=== PATIENT | male | born 1995 | race Caucasian/White ===

== ENCOUNTER 2018-01-13 19:55 | Emergency (ER) | payer BC, OTHER ==
[~2018-01-13] VITALS: Ht 172.7 cm; Wt 81.6 kg
[2018-01-13 20:07] VITALS: BP_SYST 111
[2018-01-13] MEDS ORDERED: DIPH-TET-PERTUS Vaccine 0.5 ML VIAL (ADACEL) I.M. ONE (20:45)
[2018-01-13 20:48] VITALS: BP_SYST 114
== END 2018-01-13 20:48 | disposition home or self-care (01) ==
LOC: SED 19:55
DX: S00.81XA Abrasion of other part of head, initial encounter (principal); Z88.0 Allergy status to penicillin; W22.8XXA Striking against or struck by other objects, initial encounter; Y93.89 Activity, other specified; Y92.488 Other paved roadways as the place of occurrence of the external cause; Y99.8 Other external cause status
CPT/HCPCS: 70150-TC; 90715; 99284

== ENCOUNTER 2018-08-08 11:38 | Outpatient (CLI) | payer OTHER | END 2018-08-08 19:31 | disposition home or self-care (01) | LOC: SMI 11:38 | PROVIDERS: ATTEND Internal Medicine | DX: S93.402A Sprain of unspecified ligament of left ankle, initial encounter (principal); X58.XXXA Exposure to other specified factors, initial encounter; Y93.89 Activity, other specified; Y92.89 Other specified places as the place of occurrence of the external cause; Y99.8 Other external cause status | CPT/HCPCS: 73721 ==

== ENCOUNTER 2018-08-21 21:59 | Emergency (ER) | payer OTHER ==
[~2018-08-21] VITALS: Ht 175.3 cm; Wt 90.7 kg
[2018-08-21 22:10] VITALS: BP_SYST 140
== END 2018-08-21 23:05 | disposition left against medical advice (07) ==
LOC: SED 21:59
DX: K92.0 Hematemesis (principal); K62.5 Hemorrhage of anus and rectum; Z53.21 Procedure and treatment not carried out due to patient leaving prior to being seen by health care provider

== ENCOUNTER 2018-10-10 15:18 | Emergency (ER) | payer OTHER ==
[~2018-10-10] VITALS: Ht 175.3 cm; Wt 90.7 kg
[2018-10-10 15:26] VITALS: BP_SYST 143
[2018-10-10] MEDS ORDERED: IBUPROFEN 800 MG TABLET PO ONE (16:15)
[2018-10-10] MEDS ORDERED: OSELTAMIVIR PHOSPHATE 75 MG CAPSULE PO ONE (16:30)
[2018-10-10 17:00] VITALS: BP_SYST 143
== END 2018-10-10 17:00 | disposition home or self-care (01) ==
LOC: SED 15:18
DX: J06.9 Acute upper respiratory infection, unspecified (principal); R50.9 Fever, unspecified; Z88.0 Allergy status to penicillin
CPT/HCPCS: 36415; 86710; 99283

== ENCOUNTER 2018-11-25 17:21 | Emergency (ER) | payer OTHER ==
[~2018-11-25] VITALS: Ht 175.3 cm; Wt 88.5 kg
[2018-11-25 17:23] VITALS: BP_SYST 123
[2018-11-25] MEDS ORDERED: KETOROLAC TROMETHAMINE 60 MG/2 ML VIAL IM ONE (17:45)
[2018-11-25] MEDS ORDERED: DEXAMETHASONE SOD PHOSPHATE 10 MG/ML VIAL IM ONE (17:45)
[2018-11-25 18:30] VITALS: BP_SYST 123
== END 2018-11-25 18:30 | disposition home or self-care (01) ==
LOC: SED 17:21
DX: J04.0 Acute laryngitis (principal); R03.0 Elevated blood-pressure reading, without diagnosis of hypertension; Z88.0 Allergy status to penicillin
CPT/HCPCS: 36415; 86403; 87081; 96372; 99283; J1100; J1885

== ENCOUNTER 2019-01-02 11:15 | Outpatient (CLI) | payer OTHER ==
[2019-01-02 12:03] LABS: EOSINOPHILS # (AUTO) 0.1 K/uL (0.0-0.4); EOSINOPHILS % (AUTO) 2.7 % (0.0-4.0); HEMATOCRIT 47.1 % (36-54); HEMOGLOBIN 15.8 g/dL (14.0-18.0); LYMPHOCYTES # (AUTO) 1.9 K/uL (1.0-5.5); LYMPHOCYTES % (AUTO) 38.5 % (20.5-51.5); MEAN CORPUSCULAR HEMOGLOBIN 30 pg (27-31); MEAN CORPUSCULAR HGB CONC 34 % (32-36); MEAN CORPUSCULAR VOLUME 88 fL (79.0-98.0); MONOCYTES # (AUTO) 0.4 K/uL (0.0-1.0); MONOCYTES % (AUTO) 7.3 % (1.7-9.3); NEUTROPHILS # (AUTO) 2.5 K/uL (1.8-7.7); NEUTROPHILS % (AUTO) 50.5 % (40.0-70.0); PLATELET COUNT (AUTO) 305 K/uL (130-430); RED BLOOD CELL COUNT(AUTO) 5.34 MIL/uL (4.2-6.2); RED CELL DISTRIBUTION WIDTH 14.1 % (9.0-15.0)
[2019-01-02 12:32] LABS: ALBUMIN 3.8 g/dL (3.4-4.8); CALCIUM 9.7 mg/dL (8.4-11.0); CREATININE 0.97 mg/dL (0.55-1.30); POTASSIUM 4.5 mmol/L (3.5-5.1); THYROID STIMULATING HORMONE 1.18 uIu/mL (0.34-4.82); TOTAL BILIRUBIN 0.5 mg/dL (0.0-1.0); URIC ACID 5.7 mg/dL (2.4-7.0)
== END 2019-01-02 20:56 | disposition home or self-care (01) ==
LOC: SLB 11:15
PROVIDERS: ATTEND Internal Medicine
DX: Z00.01 Encounter for general adult medical examination with abnormal findings (principal)
CPT/HCPCS: 36415; 80053; 80061; 82306; 82607; 84443-TC; 84550-TC; 85025

== ENCOUNTER 2019-03-11 23:50 | Emergency (ER) | payer MEDICAID, OTHER ==
[~2019-03-11] VITALS: Ht 175.3 cm; Wt 90.7 kg
[2019-03-12 00:32] VITALS: BP_SYST 116
[2019-03-12] MEDS ORDERED: MORPHINE 4 MG/ML INJ. SYRINGE IVP ONE (01:45)
[2019-03-12] MEDS ORDERED: NACL 0.9% 1,000 ML IV ONE (01:45)
[2019-03-12 02:04] LABS: HEMOGLOBIN 15.4 g/dL (14.0-18.0)
[2019-03-12] MEDS ORDERED: IOHEXOL 100 ML IV ONE (02:10)
[2019-03-12 02:11] LABS: CALCIUM 8.9 mg/dL (8.4-11.0); CREATININE 1.1 mg/dL (0.55-1.30)
[2019-03-12 02:15] LABS: ALBUMIN 3.9 g/dL (3.4-4.8); TOTAL BILIRUBIN 0.4 mg/dL (0.0-1.0)
[2019-03-12 02:19] LABS: BASOPHILS # (AUTO) 0.1 K/uL (0.0-0.2); BASOPHILS % (AUTO) 0.7 % (0.0-2.0); EOSINOPHILS # (AUTO) 0.2 K/uL (0.0-0.4); EOSINOPHILS % (AUTO) 2.1 % (0.0-4.0); HEMATOCRIT 44.6 % (36-54); LYMPHOCYTES # (AUTO) 2.9 K/uL (1.0-5.5); LYMPHOCYTES % (AUTO) 34.2 % (20.5-51.5); MEAN CORPUSCULAR HEMOGLOBIN 31 pg (27-31); MEAN CORPUSCULAR HGB CONC 35 % (32-36); MEAN CORPUSCULAR VOLUME 89 fL (79.0-98.0); MONOCYTES # (AUTO) 0.7 K/uL (0.0-1.0); MONOCYTES % (AUTO) 7.7 % (1.7-9.3); NEUTROPHILS # (AUTO) 4.6 K/uL (1.8-7.7); NEUTROPHILS % (AUTO) 55.3 % (40.0-70.0); PLATELET COUNT (AUTO) 309 K/uL (130-430); RED BLOOD CELL COUNT(AUTO) 5.04 MIL/uL (4.2-6.2); RED CELL DISTRIBUTION WIDTH 13.8 % (9.0-15.0); WHITE BLOOD COUNT (AUTO) 8.4 K/uL (4.8-10.8)
[2019-03-12 03:21] VITALS: BP_SYST 120
== END 2019-03-12 03:21 | disposition home or self-care (01) ==
LOC: SED 23:50
DX: K62.5 Hemorrhage of anus and rectum (principal)
CPT/HCPCS: 36415; 74177; 80053; 83690; 85025; 96374; 99284; J2270; J7030; Q9967; 96361